=== PATIENT | female | born 1990 | race American Indian/Alaskan Native ===

== ENCOUNTER 2016-06-30 18:02 | Outpatient (CLI) | payer OTHER, MEDICAID ==
[2016-06-30 18:31] VITALS: BP 109/58
[2016-06-30] MEDS ORDERED: LACTATED RINGERS 500 ML IV ONE (18:42)
[2016-06-30] MEDS ORDERED: VISTARIL PO ONE (20:40)
== END 2016-06-30 22:35 | disposition home or self-care (01) ==
LOC: TRG 18:02
PROVIDERS: ATTEND Obstetrics & Gynecology
DX: O47.03 False labor before 37 completed weeks of gestation, third trimester (principal); Z3A.35 35 weeks gestation of pregnancy
CPT/HCPCS: 96360; J7120; Q0177

== ENCOUNTER 2016-12-22 21:09 | Emergency (ER) | payer MEDICAID, OTHER ==
[2016-12-22] MEDS ORDERED: TYLENOL ONE (21:25)
[2016-12-22 21:30] VITALS: BP 116/80
[2016-12-22] MEDS ORDERED: TYLENOL PO ONE (21:31)
[2016-12-22 22:01] LABS: Hematocrit 39.1 % (30.3-42.9); Hemoglobin 12.7 gm/dl (10.1-14.3); Mean Corpuscular HGB Conc 33 % (30-34); Mean Corpuscular Hemoglobin 27 pg (28-32); Mean Corpuscular Volume 84 fl (79-97); Platelet Count 188 K/mm3 (140-440); Red Blood Count 4.69 M/mm3 (3.65-5.03); Red Cell Distribution Width 17.6 % (13.2-15.2); White Blood Count 6.7 K/mm3 (4.5-11.0)
[2016-12-22 22:22] LABS: Alanine Aminotransferase 10 units/L (7-56); Albumin/Globulin Ratio 1.4 %; Alkaline Phosphatase 71 units/L (35-129); Anion Gap 19 mmol/L; BUN/Creatinine Ratio 11.42; Bilirubin,Total < 0.20 mg/dL (0.1-1.2); Blood Urea Nitrogen 8 mg/dL (7-17); Calcium 8.5 mg/dL (8.4-10.2); Carbon Dioxide 23 mmol/L (22-30); Chloride 100.3 mmol/L (98-107); Glucose 102 mg/dL (65-100); Potassium 3.6 mmol/L (3.6-5.0); Sodium 139 mmol/L (137-145); Total Protein 6.9 g/dL (6.3-8.2)
[2016-12-22 22:36] LABS: Blastocytes % (Manual) 0 %
[2016-12-22 22:37] LABS: Anisocytosis 1+; Basophils % (Manual) 0 % (0.0-1.8); Eosinophils % (Manual) 0 % (0.0-4.3)
[2016-12-22 22:38] LABS: Diff Status Complete; Large Platelets Few; Platelet Estimate Consistent w Auto; Poikilocytosis 1+
--- NOTE | 2016-12-22 22:39 | XRay Report ---
FINAL REPORT PROCEDURE: XR CHEST ROUTINE 2V TECHNIQUE: PA and lateral chest radiographs were obtained. CPT 70697 HISTORY: chest pain COMPARISON: No prior studies are available for comparison. FINDINGS: Heart: Normal. Mediastinum/Vessels: Normal. Lungs/Pleural space: Normal. Bony thorax: No acute osseous abnormality. Dextroscoliosis of the thoracic spine. Other: IMPRESSION: No acute cardiopulmonary disease..
[2016-12-22 22:47] LABS: Bilirubin,Urine NEG (Negative); Blood,Urine NEG (Negative); Ketones,Urine NEG (Negative); Leukocyte Esterase,Urine TR (Negative); Mucus,Urine 2+ /HPF; Nitrite,Urine NEG (Negative)
== END 2016-12-22 22:00 | disposition left against medical advice (07) ==
LOC: ED 21:09
DX: M79.1 Myalgia (principal); R50.9 Fever, unspecified; Z53.21 Procedure and treatment not carried out due to patient leaving prior to being seen by health care provider
CPT/HCPCS: 36415; 71020; 80053; 81001; 81025; 85007; 85025